=== PATIENT | female | born 1990 | race African-American/Black ===

== ENCOUNTER 2019-11-18 08:00 | Inpatient (IN) ==
[2019-11-18] MEDS ORDERED: Famotidine 20 MG/2 ML VIAL IVP PRN (08:42)
[2019-11-18] MEDS ORDERED: Naloxone 0.4 MG/ML INJ IVP PRN (08:42)
[2019-11-18] MEDS ORDERED: Metoclopramide 10 MG/2 ML VIAL IVP PRN (08:42)
[2019-11-18] MEDS ORDERED: Ondansetron 4 MG/2 ML VIAL IVP PRN (08:42)
[2019-11-18] MEDS ORDERED: Ringers Solution, Lactated 1,000 ML IVC SCH (08:45)
[2019-11-18] MEDS ORDERED: miSOPROStoL 25 MCG TABLET PO PRN (09:15)
[2019-11-18 09:17] LABS: Basophils % 0.4 %; Eosinophils # 0.2 K/mcL (0.0-0.6); Eosinophils % 1.5 %; Hematocrit 33.9 % (35.3-44.9); Hemoglobin 11.7 g/dL (11.5-15.4); Immature Granulocytes % 0.7 % (0-4); Lymphocytes # 2.1 K/mcL (0.6-4.6); Lymphocytes % 20.8 %; Mean Corpuscular HGB Conc 34.5 g/dL (31.6-35.5); Mean Corpuscular Hemoglobin 30.9 pg (28.0-33.3); Mean Corpuscular Volume 89.4 fL (83.0-100.0); Mean Platelet Volume 10.3 fL (9.4-12.4); Monocytes # 0.7 K/mcL (0.0-1.3); Monocytes % 6.8 %; Platelet Count 307 K/mcL (140-400); Red Blood Count 3.79 M/mcL (3.82-4.97); Red Cell Distribution Width 14.4 % (11.5-14.5); Segmented Neutrophils % 69.8 %; White Blood Count 10.1 K/mcL (4.3-11.1)
[2019-11-18 09:55] LABS: Amphetamine Screen,Urine Negative ng/mL (Cutoff=1000); Barbiturate Screen,Urine Negative ng/mL (Cutoff=200); Benzodiazepines Screen,Urine Negative ng/mL (Cutoff=300); Cannabinoid Screen,Urine Negative ng/mL (Cutoff = 50); Cocaine Screen,Urine Negative ng/mL (Cutoff= 300); Opiate Screen,Urine Negative ng/mL (Cutoff=300); Phencyclidine Screen,Urine Negative ng/mL (Cutoff=25)
[2019-11-18] MEDS ORDERED: EPHEDrine 50 MG/ML VIAL IVP PRN (13:08)
[2019-11-18] MEDS ORDERED: Epidural Premix (fent/bupiv) 110 ML EP SCH (13:15)
[2019-11-18] MEDS ORDERED: Bupivacaine-MPF 0.25% 10 ML VIAL ONE (17:58)
[2019-11-18] MEDS ORDERED: *HR* FentaNYL (PF) 100 MCG/2 ML VIAL ONE (17:58)
[2019-11-18] MEDS ORDERED: Oxytocin 20 units/ LR 1000 mL 20 UNIT/1,000 ML BAG IVC ONE (18:52)
[2019-11-18] MEDS ORDERED: Oxytocin 20 units/ LR 1000 mL 20 UNIT/1,000 ML BAG IVC SCH (19:00)
[2019-11-19] MEDS ORDERED: Oxytocin 20 units/ LR 1000 mL 20 UNIT/1,000 ML BAG IVC SCH (00:54)
[2019-11-19] MEDS ORDERED: Lanolin 7 G OINT...G. TP PRN (00:54)
[2019-11-19] MEDS ORDERED: Benzocaine/Menthol 56 GM AEROSOL SPRAY TP PRN (00:54)
[2019-11-19] MEDS ORDERED: Ondansetron 4 MG/2 ML VIAL IVP PRN (01:53)
[2019-11-19 05:25] LABS: Hematocrit 31.1 % (35.3-44.9); Hemoglobin 10.5 g/dL (11.5-15.4); Mean Corpuscular HGB Conc 33.8 g/dL (31.6-35.5); Mean Corpuscular Hemoglobin 31.2 pg (28.0-33.3); Mean Corpuscular Volume 92.3 fL (83.0-100.0); Mean Platelet Volume 10.6 fL (9.4-12.4); Platelet Count 254 K/mcL (140-400); Red Blood Count 3.37 M/mcL (3.82-4.97); Red Cell Distribution Width 14.2 % (11.5-14.5)
[2019-11-19 05:26] LABS: White Blood Count 16.4 K/mcL (4.3-11.1)
[2019-11-19] MEDS: Prenatal Vit/FA 1 EACH TABLET PO SCH (09:35)
[2019-11-19] MEDS: Amoxicillin/Clavulanate 500 MG TABLET PO SCH ×2 (09:47→16:24)
[2019-11-19] MEDS: Ibuprofen 600 MG TABLET PO PRN ×2 (10:40→16:24)
[2019-11-19] MEDS ORDERED: Methylergonovine 0.2 MG/ML AMPUL IM ONE (11:19)
[2019-11-19] MEDS: Acetaminophen 325 MG TABLET PO PRN ×2 (15:38→21:30)
[2019-11-20] MEDS: Prenatal Vit/FA 1 EACH TABLET PO SCH (08:16)
[2019-11-20] MEDS: Amoxicillin/Clavulanate 500 MG TABLET PO SCH (08:16)
[2019-11-20 08:17] VITALS: BP 113/67
== END 2019-11-20 11:20 | disposition home or self-care (01) | DRG 560 ==
LOC: 1NENULAB 08:16 → 1NENUOBS 11-19 01:26
PROVIDERS: ADMIT Student in an Organized Health Care Education/Training Program; ATTEND Student in an Organized Health Care Education/Training Program